=== PATIENT | male | born 1995 | race Caucasian/White ===

== ENCOUNTER → 2019-12-29 08:37 | Outpatient (CLI) | payer OTHER, SELFPAY | PROVIDERS: Visit Provider Nurse Practitioner | DX: J02.9 Acute pharyngitis, unspecified (principal) | CPT/HCPCS: 87070; 87077; 87147 ==

== ENCOUNTER → 2021-07-22 17:40 | Outpatient (CLI) | payer OTHER, SELFPAY ==
[2021-07-22 18:48] LABS: COVID19 -Nasal RAPID Negative (Negative)
== END ==
PROVIDERS: Referring Provider Nurse Practitioner; Visit Provider Nurse Practitioner
DX: Z20.822 Contact with and (suspected) exposure to COVID-19 (principal)
CPT/HCPCS: 87635

== ENCOUNTER → 2021-09-25 10:10 | Outpatient (CLI) | payer OTHER, SELFPAY ==
[2021-09-25 12:10] LABS: Influenza A - CEPHEID Flu A NEGATIVE (NEGATIVE); Influenza B - CEPHEID Flu B NEGATIVE (NEGATIVE)
[2021-09-27 14:48] LABS: COVID-19 CEPHEID PCR (VTM/NP) POSITIVE (Negative)
== END ==
PROVIDERS: Referring Provider Physician Assistant; Visit Provider Physician Assistant
DX: U07.1 COVID-19 (principal); Z20.822 Contact with and (suspected) exposure to COVID-19; R51.9 Headache, unspecified; R50.9 Fever, unspecified
CPT/HCPCS: 87502; 87635; U0003

== ENCOUNTER 2022-03-29 12:22 | Emergency (ER) | payer OTHER, SELFPAY ==
[2022-03-29 12:25] VITALS: BP 127/78; PULSE 103; RESP 20; TEMP 36.3; O2SAT 99; BMI 27.9
[2022-03-29 12:51] LABS: COVID19 -Nasal RAPID POSITIVE (Negative)
--- NOTE | 2022-03-29 14:41 | ED.HA ---
HPI - Headache <THERESA Salgado - Last Filed: 03/29/22 20:23> General Chief Complaint: Headache Stated Complaint: Lightheaded, headache, N/V/D Time Seen by Provider: 03/29/22 14:05 Mode of arrival: Ambulatory History of Present Illness HPI Narrative: This is a 27-year-old male who is unvaccinated for COVID and presents to the emergency department complaining of fever, lightheadedness, headache, nausea, vomiting, diarrhea which started last night. patient is concerned about COVID and request a COVID test. His COVID test is positive for COVID in triage. Patient denies any other symptoms other than those listed above, he denies a sore throat, cough, shortness of breath or wheezing. Patient states that he feels fatigued and Has not been able to keep anything Related Data Previous Rx's Medication Instructions Recorded loperamide 2 mg tablet 2 mg PO Q6H PRN #10 tab 03/29/22 ondansetron 4 mg disintegrating 4 mg PO Q8H PRN #10 tab 03/29/22 tablet [id number]-[id number] 30 1 cap PO Q6H PRN #14 tab 03/29/22 mg-10 mg-200 mg tablet Allergies Allergy/AdvReac Type Severity Reaction Status Date / Time No Known Drug Allergies Allergy Verified 09/25/21 10:16 Review of Systems <THERESA Salgado - Last Filed: 03/29/22 20:23> Review of Systems Narrative: General: denies fever, chills, malaise, sweats, fatigue Head/Neck: Endorses headache, denies neck pain, dizziness Eyes: denies visual changes, eye pain ENT: Denies ear pain, endorses runny nose, slightly sore throat Cardio: denies chest pain, palpitations, edema Respiratory: denies dyspnea, cough, orthopnea, denies any shortness of breath GI: denies abdominal pain, nausea, vomiting, or diarrhea : denies dysuria, hematuria, urinary retention, frequency or incontinence MSK: denies joint pain, muscle weakness Skin: denies rash, itching, skin lesions or other Neuro: denies numbness, tingling Patient History <THERESA Salgado - Last Filed: 03/29/22 20:23> Medical History Asthma Wrist fracture, right (2007) Family History Mother Factor V Leiden Chronic constipation Grandmother Factor V Leiden Clotting disorder Grandfather Diabetes mellitus Social History Smoking Status: Never smoker alcohol intake: current Smoking Status: Never smoker alcohol intake frequency: a few times a month Exam <THERESA Salgado - Last Filed: 03/29/22 20:23> Narrative Exam Narrative: Independently reviewed vitals signs and nursing notes. General: Awake, alert, nontoxic, no cardiorespiratory distress Head/Neck: Atraumatic, neck supple Eyes: EOMI, conjunctiva normal Nose: nares patent, no rhinorrhea Mouth/Throat: moist mucus membranes, posterior pharynx without erythema or lesion Cardio: Regular rate and rhythm, sinus tachycardia initially, this came down, no peripheral edema Respiratory: respirations unlabored without wheezing, stridor, or rales. No retractions, hypoxia or tachypnea, no abnormal breath sounds, no increased work of breathing GI: Abdomen soft, non-tender to palpation x4 quadrants, no guarding or rebound tenderness MSK: Moves all extremities, neurovascularly intact, range of motion without deficit Skin: Normal capillary refill, no rash Neuro: Normal speech and cognition, normal gait Initial Vital Signs Initial Vital Signs: Vital Signs Temperature 97.4 F L 03/29/22 12:25 Pulse Rate 103 H 03/29/22 12:25 Respiratory Rate 20 03/29/22 12:25 Blood Pressure 127/78 03/29/22 12:25 Pulse Oximetry 99 03/29/22 12:25 Course <THERESA Salgado - Last Filed: 03/29/22 20:23> Orders Ordered: Discontinued Medications Ketorolac Tromethamine (Ketorolac 30 Mg/Ml Vial) 15 mg IM NOW ONE Stop: 03/29/22 14:15 Last Admin: 03/29/22 14:50 Dose: 15 mg Documented by: KATYA Ondansetron HCl (Ondansetron 4 Mg Odt) 4 mg SL NOW ONE Stop: 03/29/22 14:15 Last Admin: 03/29/22 14:49 Dose: 4 mg Documented by: KATYA Vital Signs Vital signs: Vital Signs - 8 hr 03/29/22 12:25 Temperature 97.4 F L Pulse Rate 103 H Respiratory Rate 20 Blood Pressure 127/78 Pulse Oximetry 99 MDM - Headache <Erinclifford MossliyahTHERESA - Last Filed: 03/29/22 20:23> Lab Data Labs: Lab Results 03/29/22 Range/Units 12:30 SARS-CoV-2 (PCR) Positive H (Negative) MDM Narrative Medical decision making narrative: This is a 27-year-old male who is unvaccinated for COVID who presents to the emergency department with one day of fever, headache, lightheadedness, nausea, vomiting, diarrhea and headache which all started last night. COVID (+) on day [2] of symptoms without hypoxia, respiratory distress, dehydration, or focal exam to suggest secondary bacterial infection. COVID test was positive today. Discussed CDC guidelines for quarantine, mask wearing, physical distancing, and infection prevention measures such as frequent handwashing. Discussed supportive treatments: Tylenol/Motrin as needed for pain/fever. OTC decongestant medications and/or antihistamines for symptomatic relief. Maintain adequate fluid intake. Follow-up with PCP as directed. Return to clinic/ER instructions discussed for new, not improving, or worsening symptoms. All questions answered. Discharge Plan Departure Patient Disposition: Home Clinical Impression: COVID-19, Nausea vomiting and diarrhea Instructions: Nausea and Vomiting-Adult, DI for COVID-19 (Suspected or Confirmed ) Activity Restrictions/Additional Instructions: *You have been diagnosed with COVID-19. Please use Zofran for nausea and vomiting every 8 hours as needed, I have sent loperamide to your pharmacy as well, this is for diarrhea, it will help bulk up your stool. I also sent Mucinex with pseudoephedrine to your pharmacy to help dry up any secretions. You may also use Flonase, Tylenol, ibuprofen as needed for your pain and other symptoms. Please stay hydrated, remember to take deep breaths, walks around and have light activity, rest as much as you need two, please quarantine for at least five days from your symptom onset, and for as long as you have a fever. If you have any difficulty breathing, worsening pain beyond your control at home, if you are unable to keep anything down, please return to the emergency department. Please attempt to hydrate after taking Zofran so that can keep it down. I wish you the best and speedy recovery. *What to do: *Please continue to take your regular medications as directed. [x ] New medication prescriptions sent to your pharmacy: [ [facility] [place]] [ ] New medication written as a paper prescription [ ] No new medications given *Please follow up with your primary care provider in 2-3 days, call for an appointment. Let them know you were seen in the Emergency Department and that we asked that you be seen for follow-up. We will electronically transmit a record of today's note if your PCP is in our system *If you do not have a primary care provider please contact [phone] to establish care with one of the [facility] primary care providers. *Return to Emergency Department if you should have any new, worsening or concerning symptoms, such as [fever greater than 101F, chills, worsening pain, persistent vomiting or other bothersome symptoms] Prescriptions: New ondansetron 4 mg tablet,disintegrating 4 mg PO Q8H PRN (Reason: nausea and vomiting) Qty: 10 0RF loperamide 2 mg tablet 2 mg PO Q6H PRN (Reason: loose stool) Qty: 10 0RF gfkffjdjyhovfes-VG-hhxnsixjkig 30-10-200 mg tablet 1 cap PO Q6H PRN (Reason: cold symptoms) Qty: 14 0RF Referrals: Miscellaneous,Doctor, [Primary Care Provider] -
[2022-03-29] MEDS: ONDANSETRON 4 MG ODT SL (14:49)
[2022-03-29] MEDS: KETOROLAC 30 MG/ML VIAL 15 MG IM (14:50)
== END 2022-03-29 15:09 | disposition home or self-care (01) ==
PROVIDERS: Emergency Medicine; Emergency Provider Nurse Practitioner Critical Care Medicine
DX: U07.1 COVID-19 (principal); R11.2 Nausea with vomiting, unspecified; R19.7 Diarrhea, unspecified
CPT/HCPCS: 87635; 96372; 99283; C9803; J1885